=== PATIENT | male | born 1960 | race Caucasian/White ===

== ENCOUNTER 2023-11-21 09:38 | Emergency (ER) | payer OTHER ==
[2023-11-21 10:04] VITALS: TEMP 98.1
[2023-11-21 10:40] LABS: Absolute Neutrophil Ct (ANC) 4.17 x10^3/uL (1.78-5.38); BASOPHIL % 1.2 % (0.2-1.2); Basophil (Absolute #) 0.09 x10^3/uL (0.01-0.08); Hematocrit 42.6 % (40.1-51.0); Hemoglobin 14.6 g/dL (13.7-17.5); IMMATURE GRAN # 0.02 x10^3u/L (0.001-0.031); IMMATURE GRAN % 0.3 % (0.001-0.429); Lymphocyte (Absolute #) 1.98 x10^3/uL (1.32-3.57); Lymphocytes % 26.4 % (21.8-53.1); Mean Cell Volume 89.7 fL (79.0-92.2); Mean Corpuscular Hemoglobin 30.7 pg (25.7-32.2); Mean Corpuscular Hgb Concent. 34.3 g/dL (32.3-36.5); Mean Platelet Volume 10.2 fL (9.4-12.4); Monocyte (Absolute #) 0.65 x10^3/uL (0.30-0.82); Monocytes % 8.7 % (5.3-12.2); Neutrophil % 55.4 % (34.0-67.9); Platelet Count 187 x10^3/uL (163-337); Red Blood Count 4.75 x10^6/uL (4.63-6.08); Red Cell Distribution Width 12.6 % (11.6-14.4); White Blood Count 7.5 x10^3/uL (4.23-9.07)
[2023-11-21 10:52] LABS: ALBUMIN 4.8 g/dL (3.5-5.0); ANION GAP 15.7 MEQ/L (5-15); BILIRUBIN,TOTAL 0.8 mg/dL (0.2-1.3); Calcium 9.6 mg/dL (8.4-10.2); Creatinine 1 0.94 mg/dL (0.66-1.25); EST GLOMERULAR FILTRATION RATE 92.2 ML/MIN; Potassium 4.2 mmol/L (3.5-5.1); Total Protein 7.6 g/dL (6.3-8.2)
[2023-11-21 11:04] VITALS: PULSE 71
--- NOTE | 2023-11-21 12:03 | XRAY ---
Indication: Right flank pain. Multiple contiguous axial images obtained through the abdomen and pelvis without contrast using renal stone protocol. Comparison: August 08, 2013 Lung bases clear again with incidental tiny right lower lobe calcified granuloma. Heart not enlarged. There are now at least 2 right and 1 left nonobstructing renal punctate calculi. Noncontrasted stomach and bowel loops appear nonobstructed with normal appendix. Increasing scattered diffuse colonic diverticulosis without diverticulitis. Again diffuse fatty liver. No free fluid/air. Remaining liver, gallbladder, pancreas, spleen, adrenal glands, kidneys, ureters, and bladder are unremarkable for noncontrast exam. New mild scattered aortoiliac calcifications without AAA. Osseous structures intact again with mild degenerative changes throughout the thoracolumbar spine again greatest at L5-S1. Stable bilateral L5 spondylolysis with grade 2 listhesis and subsequent bilateral foraminal stenosis.. Stable small fatty umbilical hernia. Impression: 1. New nonobstructing bilateral renal punctate calculi. 2. Again chronic findings including right lower lobe calcified granuloma, fatty liver, colonic diverticulosis, fatty umbilical hernia, multilevel degenerative spondylosis, and L5 spondylolysis with grade 2 listhesis.
[2023-11-21 12:06] VITALS: BP 133/89; O2SAT 93
--- NOTE | 2023-11-21 12:07 | XRAY ---
Indication: Right flank pain. Sagittal, coronal, and axial reformatted images lumbar spine obtained using raw data from same day CT abdomen/pelvis exam. Comparison: CT abdomen/pelvis August 08, 2013 Osseous structures intact again with mild multilevel degenerative again greatest at L5-S1. Stable bilateral L5 spondylolysis with grade 2 listhesis and subsequent bilateral foraminal stenosis. No acute fracture, suspicious bony lesions or spinal canal stenosis. CT abdomen/pelvis reported separately. Impression: Grossly stable multilevel degenerative spondylosis and L5 spondylolysis with grade 2 listhesis. No new/acute abnormalities.
[2023-11-21 12:15] LABS: Appearance Clear (Clear); Bacteria None Seen /HPF (None Seen); Bilirubin Negative (Negative); Blood Negative (Negative); Epithelial Cells None Seen /HPF (None Seen); Glucose, Urine Negative (Negative); Hyaline Casts NONE SEEN /LPF (0-2); Ketones Negative (Negative); Leukocyte Esterase Negative (Negative); Nitrite Negative (Negative); Ph 5.5 (4.6-8.0); Protein,Urine Dip Negative (Negative); RBC 0-2 /HPF (0-5); Urobilinogen 0.2 mg/dL (0.2); WBC 0-2 /HPF (0-5)
--- NOTE | 2023-11-21 12:34 | ERPHSYRPT ---
- History of Present Illness Time Seen by Provider: 11/21/23 10:00 Source: patient Exam Limitations: no limitations Patient Subjective Stated Complaint: Pt c/o of right sided back pain for the past couple of weeks that has gotten worse today Triage Nursing Assessment: Pt brought self to the ER, hypertensive, rates pain as 10/20, hx of back pain, pain in the right flank area, pulses normal, skin n/w/d, no difficulty breathing, doesn't appear to be in any distress Physician History: 63-year-old male presents to our ED with right-sided lower back pain into the right flank. Patient states the pain has been intermittent over the past couple weeks but worse over the past couple days. No falls no trauma no injury. Sanjuana rodriguez states he has been working on a home project requiring him to lean forward. Patient has been laying new floor tile. This may have exacerbated patient's pain. No hematuria or dysuria. Pain described as an ache. Pain is localized no referral into the lower extremities. No numbness tingling or weakness. No saddle anesthesia. No change in bowel bladder function. No fever no recent back procedure. Patient voices no other complaints or concerns at this time. Portions of this note were created with voice recognition technology. There may be grammatical, spelling, punctuation or sound alike errors Timing/Duration: week(s) Severity: moderate (2 weeks) Modifying Factors: Improves With: movement (Movement and palpation) Associated Symptoms: denies symptoms Allergies/Adverse Reactions: Penicillins Allergy (Mild, Verified 11/21/23 10:04) hot flashes Home Medications: Atorvastatin Calcium [Lipitor 40Mg] 40 mg PO DAILY 11/21/23 [History] Duloxetine HCl 30 mg [Cymbalta 30 MG Capsule] 30 mg PO DAILY 11/21/23 [History] Lisinopril 10 mg [Zestril 10 MG] 10 mg PO DAILY 11/21/23 [History] Hx Tetanus, Diphtheria Vaccination/Date Given: No Hx Influenza Vaccination/Date Given: No Hx Pneumococcal Vaccination/Date Given: No Travel Risk - International Travel Have you traveled outside of the country in past 3 weeks: No - Emerging Infectious Disease Are you exhibiting symptoms associated with any current EIDs: No - Review of Systems Constitutional: No Symptoms, No Fever, No Chills Eyes: No Symptoms Ears, Nose, & Throat: No Symptoms Respiratory: No Symptoms, No Cough, No Dyspnea Cardiac: No Symptoms, No Chest Pain, No Edema, No Syncope Abdominal/Gastrointestinal: No Symptoms, No Abdominal Pain, No Nausea, No Vomiting, No Diarrhea Genitourinary Symptoms: No Symptoms, No Dysuria Musculoskeletal: No Symptoms, No Back Pain, No Neck Pain Skin: No Symptoms, No Rash Neurological: No Symptoms, No Dizziness, No Focal Weakness, No Sensory Changes Psychological: No Symptoms Endocrine: No Symptoms Hematologic/Lymphatic: No Symptoms Immunological/Allergic: No Symptoms All Other Systems: Reviewed and Negative - Past Medical History Pertinent Past Medical History: Yes Neurological History: No Pertinent History ENT History: Other Cardiac History: No Pertinent History Respiratory History: No Pertinent History Endocrine Medical History: No Pertinent History Musculoskeletal History: No Pertinent History GI Medical History: No Pertinent History History: No Pertinent History Psycho-Social History: No Pertinent History Male Reproductive Disorders: No Pertinent History Other Medical History: recent auto immune / RA testing. sleep apnea - Past Surgical History Past Surgical History: Yes Neuro Surgical History: No Pertinent History Cardiac: No Pertinent History Respiratory: No Pertinent History Gastrointestinal: No Pertinent History Genitourinary: No Pertinent History Musculoskeletal: Other Male Surgical History: No Pertinent History Other Surgical History: lasik, carpal tunnel, tonsillectomy surgery - Social History Smoking Status: Never smoker Exposure to second hand smoke: No Drug Use: none Patient Lives Alone: No - Social Determinants of Health Will the patient participate in the screening: Yes Do you worry about a steady place to live?: No Do you have any problems with any of the following?: No known problems In the past 12 months,have you had to go without utilities?: No Transportation Issues: No Has anyone in your support network made you feel unsafe?: No Have you or anyone in your house had to go without enough: No - Nursing Vital Signs Nursing Vital Signs: Initial Vital Signs Temperature 98.1 F 11/21/23 09:57 Pulse Rate 75 11/21/23 09:57 Blood Pressure 159/93 11/21/23 09:57 O2 Sat by Pulse Oximetry 96 11/21/23 09:57 Pain Scale Pain Intensity [] 8 Pain Intensity 4 - Physical Exam General Appearance: no apparent distress, alert Eye Exam: PERRL/EOMI, eyes nml inspection Ears, Nose, Throat Exam: normal ENT inspection, moist mucous membranes Neck Exam: normal inspection, non-tender, supple, full range of motion Respiratory Exam: normal breath sounds, lungs clear, No respiratory distress Cardiovascular Exam: regular rate/rhythm, normal heart sounds, normal peripheral pulses Gastrointestinal/Abdomen Exam: soft, normal bowel sounds, other (Tenderness palpation lumbar spine and slightly into the right lower flank. No signs of trauma. Overlying soft tissue intact. No open or draining lesions no cellulitis no bruising.), No tenderness, No mass Back Exam: normal inspection, normal range of motion, No CVA tenderness, No vertebral tenderness Extremity Exam: normal inspection, normal range of motion, pelvis stable, other (Both lower extremities are neurovascular intact distally compartments are soft cap refill less than 2 seconds) Neurologic Exam: alert, oriented x 3, cooperative, normal mood/affect, nml cerebellar function, nml station & gait, sensation nml, No motor deficits Skin Exam: normal color, warm, dry, No rash Lymphatic Exam: No adenopathy SpO2 Interpretation: normal SpO2: 93 O2 Delivery: Room Air - Course Nursing assessment & vital signs reviewed: Yes - CT Exams Abdomen/Pelvis CT Interpretation: Tele-radiologist Report (Lung granuloma nephrolithiasis bilaterally diverticulosis fatty umbilical hernia L5 grade 2 listhesis) Ordered Tests: Active Orders 24 hr Category Date Time Status ABDOMEN AND PELVIS W/0 CONTRAS [CT] Stat Exams 11/21/23 10:16 Completed RECONSTRUCTION [CT] Routine Exams 11/21/23 10:29 Completed CBC W DIFF Stat Lab 11/21/23 10:19 Completed CMP Stat Lab 11/21/23 10:19 Completed UA W/RFX UR CULTURE Stat Lab 11/21/23 12:03 Received Lab/Rad Data: Laboratory Result Diagrams 11/21/23 10:19 11/21/23 10:19 Laboratory Results 11/21/23 11/21/23 Range/Units 10:19 10:19 WBC 7.5 (4.23-9.07) x10^3/uL RBC 4.75 (4.63-6.08) x10^6/uL Hgb 14.6 (13.7-17.5) g/dL Hct 42.6 (40.1-51.0) % MCV 89.7 (79.0-92.2) fL MCH 30.7 (25.7-32.2) pg MCHC 34.3 (32.3-36.5) g/dL RDW 12.6 (11.6-14.4) % Plt Count 187 (163-337) x10^3/uL MPV 10.2 (9.4-12.4) fL Gran % 55.4 (34.0-67.9) % Immature Gran % (Auto) 0.3 (0.001-0.429) % Nucleat RBC Rel Count 0.0 (0.00-0.2) % Eos # (Auto) 0.60 H (0.04-0.54) x10^3/uL Immature Gran # (Auto) 0.02 (0.001-0.031) x10^3u/L Absolute Lymphs (auto) 1.98 (1.32-3.57) x10^3/uL Absolute Monos (auto) 0.65 (0.30-0.82) x10^3/uL Absolute Nucleated RBC 0.00 (0.00-0.012) x10^3u/L Lymphocytes % 26.4 (21.8-53.1) % Monocytes % 8.7 (5.3-12.2) % Eosinophils % 8.0 H (0.8-7.0) % Basophils % 1.2 (0.2-1.2) % Absolute Granulocytes 4.17 (1.78-5.38) x10^3/uL Basophils # 0.09 H (0.01-0.08) x10^3/uL Sodium 140 (135-145) mmol/L Potassium 4.2 (3.5-5.1) mmol/L Chloride 107 (98-107) mmol/L Carbon Dioxide 21 L (22-30) mmol/L Anion Gap 15.7 H (5-15) MEQ/L BUN 14 (9-20) mg/dL Creatinine 0.94 (0.66-1.25) mg/dL Estimated GFR 92.2 ML/MIN Glucose 109 H (74-106) mg/dL Calcium 9.6 (8.4-10.2) mg/dL Total Bilirubin 0.80 (0.2-1.3) mg/dL AST 60 H (17-59) U/L ALT 91 H (0-50) U/L Alkaline Phosphatase 49 (38-126) U/L Serum Total Protein 7.6 (6.3-8.2) g/dL Albumin 4.8 (3.5-5.0) g/dL - Progress Progress: improved Progress Note: 63-year-old male presents to our ED for evaluation of low back flank pain. CT abdomen pelvis showed no acute findings. No kidney stone. Patient urinated just prior to arrival. He was unable to provide a urine sample here in our ED. However he will follow-up with his primary care doctor and provide 1 to his family doctor. Workup reveals normal labs. However there is significant degen erative arthritis of his lumbar spine including foraminal stenosis and anterolisthesis of L5. 11/21/23 12:40 Complexity problem addressed is moderate acute complicated. No critical care time. Complex of data reviewed and analyzed is moderate. Test ordered test reviewed results analyzed and correlated clinically with history and physical exam. Risk of complication and or risk of morbidity/mortality of patient management is moderate. A prescription for Toradol forwarded to patient's pharmacy. Vital stable. Time spent to discharge patient approximately 15 minutes. Plan of care established for shared decision making. No social determinants of health present to impede follow-up. Patient referred to [facility] orthopedic spine surgeon in [place] Portions of this note were created with voice recognition technology. There may be grammatical, spelling, punctuation or sound alike errors 11/21/23 12:41 11/21/23 12:45 Counseled pt/family regarding: lab results, diagnosis, need for follow-up, rad results - Departure Departure Disposition: Home Clinical Impression: Lung granuloma, Bilateral nephrolithiasis, Diverticulosis, Fatty umbilical hernia, L5 grade 2 listhesis, Lumbar foraminal stenosis, Back pain, Lumbosacral strain Condition: Stable Critical Care Time: No Referrals: ZHENG MCGEE [Primary Care Provider] - Follow up/PCP as directed CHRIS COHEN [NON-STAFF PHY W/O PRIVILEGES] - Follow up/PCP as directed Additional Instructions: Discharge/Care Plan MIKE HUTTON was seen on 11/21/23 in the Emergency Room. The patient was counseled regarding Diagnosis,Lab results, Imaging studies, need for follow up and when to return to the Emergency Room. Prescriptions given: Discharge Note I have spoken with the patient and/or caregivers. I have explained the patient's condition, diagnosis and treatment plan based on the information available to me at this time. I have answered the patient's and/or caregiver's questions and addressed any concerns. The patient and/or caregivers have as good understanding of the patient's diagnosis, condition and treatment plan as can be expected at this point. The vital signs have been stable. The patient's condition is stable and appropriate for discharge from the emergency department. The patient will pursue further outpatient evaluation with the primary care physician or other designated or consulting physician as outlined in the discharge instructions. The patient and/or caregivers are agreeable to this plan of care and follow-up instructions have been explained in detail. The patient and/or caregivers have received these instruction. The patient/and or caregivers are aware that any significant change in condition or worsening of symptoms should prompt an immediate return to this or the closest emergency department or call 911. Prescriptions: Ketorolac Trometh 10 mg Tab [TORAdol 10 MG TABLET] 10 mg PO TID 5 Days #15 tablet
[2023-11-21 12:38] LABS: ADD URINE CULTURE? NO (NO)
== END 2023-11-21 12:40 | disposition home or self-care (01) ==
LOC: ED 09:38
DX: J84.10 Pulmonary fibrosis, unspecified (principal); N20.0 Calculus of kidney; K57.90 Diverticulosis of intestine, part unspecified, without perforation or abscess without bleeding; K42.9 Umbilical hernia without obstruction or gangrene; M43.16 Spondylolisthesis, lumbar region; M48.061 Spinal stenosis, lumbar region without neurogenic claudication; S39.012A Strain of muscle, fascia and tendon of lower back, initial encounter; Z79.899 Other long term (current) drug therapy
CPT/HCPCS: 36415; 74176; 76376; 80053; 81001; 85025; 99283